=== PATIENT | male | born 1955 | race Hispanic/Latino ===

== ENCOUNTER → 2021-08-13 | Day surgery (SDC) | payer BC ==
[2021-08-12 13:45] VITALS: BMI 28.2
== END | disposition home or self-care (01) ==
LOC: ULT 12:22
PROVIDERS: ATTEND Internal Medicine
PROC: 07913ZX Drainage of Right Neck Lymphatic, Percutaneous Approach, Diagnostic (ICD-10-PCS; principal; 2021-08-13)
DX: C02.2 Malignant neoplasm of ventral surface of tongue (principal); R59.0 Localized enlarged lymph nodes; R91.1 Solitary pulmonary nodule; E78.5 Hyperlipidemia, unspecified; F17.210 Nicotine dependence, cigarettes, uncomplicated; Z79.899 Other long term (current) drug therapy
CPT/HCPCS: 10005; 88184; 90471; 90732; G0009